=== PATIENT | female | born 1950 ===

== ENCOUNTER → 2021-08-28 | Outpatient (CLI) | payer MEDICARE, BC ==
--- NOTE | 2021-08-28 10:53 | KCIC ---
INDICATION: Screening for osteopenia/osteoporosis. Reason: OSTEOPENIA / Spl. Instructions: / Histor y: . Postmenopausal screening. COMPARISON: None. TECHNIQUE: Bone densitometry was performed through the lumbar spine and proximal femur. IMPRESSION: Lumbar Spine: BMD: 0.96 T-Score: -0.8 Range: Lower limits of normal Proximal Femur: BMD: 0.77 T-Score: -1.4 Range: Osteopenic World Health Organization Criteria for Bone Density: T-Score: > -1.0: Normal Range < -1.0 to -2.5: Osteopenic Range < -2.5: Osteoporotic Range Electronically signed by: Mio Dodge MD (08/28/2021 10:50 AM) [id number]
== END ==
LOC: KCIC DEXA 09:39
PROVIDERS: ATTEND Family Medicine
DX: M85.88 Other specified disorders of bone density and structure, other site (principal); Z78.0 Asymptomatic menopausal state
CPT/HCPCS: 77080